=== PATIENT | female | born 1970 | race African-American/Black ===

== ENCOUNTER 2019-12-16 11:20 | Outpatient (CLI) | payer MEDICARE, MEDICAID, SELFPAY ==
--- NOTE | ~2019-12-16 | XR_ITS ---
EXAMINATION: XR elbow LT 2V EXAM DATE: 12/16/2019 11:44 INDICATION: No known recent injury provided at this time. Pain of the left elbow. TECHNIQUE: Left elbow frontal and lateral projections. There is no prior study for comparison. FINDINGS: There are no acute left elbow fractures or dislocations identified. There is no subcutaneo us gas. The soft tissue is unremarkable. There are no radiopaque foreign bodies. No evidence of j oint effusion. IMPRESSION: 1. Unremarkable XR elbow LT 2V exam. 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
--- NOTE | ~2019-12-16 | XR_ITS ---
EXAMINATION: XR elbow RT 2V EXAM DATE: 12/16/2019 11:44 INDICATION: No known recent injury provided at this time. Pain of the right elbow. TECHNIQUE: Right elbow frontal and lateral projections. Correlation is made to contralateral elbow s ramos date. FINDINGS: There are no acute right elbow fractures or dislocations identified. There is no subcutane ous gas. The soft tissue is unremarkable. There are no radiopaque foreign bodies. No evidence of joint effusion. Joint space is maintained, no bony productive changes. IMPRESSION: 1. Unremarkable XR elbow RT 2V exam. Reviewed, dictated and finalized at location B. 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
== END 2019-12-16 11:21 | disposition home or self-care (01) ==
LOC: ANHIMG 11:26
PROVIDERS: PCP Physician Assistant; Visit Provider Physician Assistant
DX: M25.521 Pain in right elbow (principal); M25.522 Pain in left elbow
CPT/HCPCS: 73070

== ENCOUNTER 2020-04-26 09:49 | Outpatient (CLI) | payer MEDICARE, MEDICAID, SELFPAY ==
--- NOTE | ~2020-04-26 | NM_ITS ---
EXAMINATION: NM hepatobiliary wo pharm DATE: 04/26/2020 14:37 CDT INDICATION: Gallstones. Abdomen pain. COMPARISON: None. TECHNIQUE: 4.8 mCi Tc-99m mebrofenin (Choletec) was administered intravenously. Scintigraphic images of the abdomen were obtained for one hour. At the 1 hour time point, the patient drank 8 oz Ensure, and imaging was continued for 60 minutes. Gallbladder ejection fraction was calculated by the technol ogist. FINDINGS: There is normal clearance of radiotracer from the blood pool. There is homogeneous tracer u ptake by the liver. Activity progresses to the bowel and gallbladder. The gallbladder ejection fract ion is 64%. Note that with this technique, normal GBEF >= 33%. IMPRESSION: 1. Normal hepatobiliary scan. Reviewed, dictated and finalized at location A.
== END 2020-04-26 09:50 | disposition home or self-care (01) ==
PROVIDERS: PCP Physician Assistant; Visit Provider Physician Assistant
DX: K80.20 Calculus of gallbladder without cholecystitis without obstruction (principal)
CPT/HCPCS: 78226; A9537

== ENCOUNTER 2021-10-27 07:37 | Outpatient (RCR) | payer OTHER, MEDICARE, SELFPAY ==
[2021-10-27] MEDS: diphenhydrAMINE HCl CAP 25 MG CAPSULE PO (09:47)
[2021-10-27] MEDS: ACETAMINOPHEN 325 MG TABLET 650 MG PO (09:47)
[2021-10-27] MEDS: FAMOTIDINE 20 MG TABLET PO (09:47)
[2021-10-27 09:54] VITALS: BP 117/75; PULSE 87; RESP 20; TEMP 35.6; O2SAT 99
[2021-10-27 11:30] VITALS: BP 129/76
--- NOTE | 2021-10-28 08:46 | PC.NURSE ---
Tried calling Ms Navarro and got a FULL voicemail and was unable to leave a message.
== END 2021-10-27 17:00 ==
LOC: AMCINF 07:37
PROVIDERS: PCP Physician Assistant; Visit Provider Internal Medicine Hematology & Oncology
DX: U07.1 COVID-19 (principal)
CPT/HCPCS: A9270; M0245; Q0245

== ENCOUNTER 2025-02-02 14:40 | Outpatient (CLI) | payer MEDICARE, MEDICAID, SELFPAY ==
--- NOTE | 2025-02-02 15:09 | ECG_ITS ---
Test Date: 2025-02-02 15:32:03 Measurements Intervals [place] Rate: 59 P: 65 [place]: 171 QRS: 46 QRSD: 107 T: 30 QT: 426 QTc: 425 Interpretive Statements SINUS BRADYCARDIA MODERATE ST DEPRESSION [0.05+ mV ST DEPRESSION] No previous ECG available for comparison Electronically Signed On 02-03-2025 16:41:10 CDT by Mary Rogers M.D.
[2025-02-02 15:27] LABS: Add Urine Microscopic? NO; Appearance Urine Clear (Clear); Bilirubin Urine Negative (Negative); Blood Urine Negative (Negative); Color Urine Yellow (Yellow); Glucose Urine UA Negative (Negative); Ketones Urine Negative (Negative); Leukocyte Esterase Ur Negative LEU/UL (Negative); Nitrate Urine Negative (Negative); Protein Urine Negative (Negative); Specific Grav Ur 1.017 (1.001-1.035); Urobilinogen Urine 0.2 mg/dL (<2.0); pH Urine 5.5 (5.0-9.0)
[2025-02-02 15:52] LABS: Basophils Percent Auto 0.5 % (0.2-1.2); Eosinophils Absolute Auto 0.1 K/mm3 (0-0.3); Eosinophils Percent Auto 2.4 % (0-4.4); Hematocrit 35.2 % (37.0-47.0); Immature Granulocyte Absolute 0.01 K/mm3 (0.00-0.031); Immature Granulocyte Percent A 0.2 % (0-0.5); Lymphocytes Absolute Auto 2.18 K/mm3 (0.9-3.2); Lymphocytes Percent Auto 36.8 % (18.3-44.2); Mean Corpuscular HGB Conc 31.3 g/dl (32-36); Mean Corpuscular Hemoglobin 28.1 pg (26-34); Mean Platelet Volume 10.8 fl (7.4-10.4); Monocytes Absolute Auto 0.8 K/mm3 (0.1-0.6); Neutrophils Absolute Auto 2.7 K/mm3 (1.3-6.7); Neutrophils Percent Auto 46.1 % (45.5-73.1); Platelet Count Result 226 k/mm3 (150-375); Red Blood Count 3.91 M/mm3 (4.2-5.4); Red Cell Distribution Width 12.9 % (11.5-14.5); White Blood Count 5.9 K/mm3 (4.5-10.0)
[2025-02-02 16:10] LABS: Anion Gap 5 mmol/L (4-12); Blood Urea Nitrogen 29 mg/dL (7-17); Calcium 8.9 mg/dL (8.4-10.2); Carbon Dioxide 32 mmol/L (22-30); Chloride 102 mmol/L (98-107); Estimated Glomerular Filt Rate 36; Glucose 63 mg/dL (65-110); Potassium 3.8 mmol/L (3.4-5.0); Sodium 139 mmol/L (137-145)
--- OUTSIDE RECORDS SUMMARY | 2025-02-02 17:18 | XMS_ITS | Referral Summary ---
Author Organization [facility] Address [address] [place] [address] Phone Care Team Providers Care Front Facer Name Role Phone Brayan Ferreira MD Unavailable [phone] Rosaura Bernard MD Unavailable [phone] Robbie Kimble MD Unavailable [phone] Jac Lancaster Primary Care Provider Dante Lynn MD Unavailable [phone] Encounters Date Type Department Care Team Description 11/07/2024 10:30 AM BREAKER OPERATOR Lab [facility] [address] [place] [address] from Last 3 Months Allergies Active Allergy Reactions Criticality Noted Date Comments Lisinopril Swelling High 11/24/2019 Lip & facial swelling Medications albuterol HFA (PROVENTIL HFA,VENTOLIN HFA,PROAIR HFA) 90 mcg/actuation inhaler Inhale 2 puffs every 6 (six) hours as needed for wheezing Active oxyCODONE-aceta minophen (PERCOCET) 10-325 mg per tablet Take 1 tablet by mouth every 4 (four) hours as needed for pain Active gabapentin (NEURONTIN) 800 mg tabletIndicatio ns:Neuropathic Pain Take 1 tablet (800 mg total) by mouth 3 (three) times a day as needed (nerve pain in feet) 1 Active cyclobenzaprine (FLEXERIL) 10 mg tabletIndicatio ns:Muscle Spasm Take 1 tablet (10 mg total) by mouth nightly as needed for muscle spasms 1 Active omeprazole (PriLOSEC) 40 mg capsule Take 1 capsule (40 mg total) by mouth daily as needed (heartburn/stoma ch pain) Active fluticasone furoate-vilante roL (BREO ELLIPTA) 200-25 mcg/dose diskus inhaler Inhale 1 puff daily as needed (cough/shortness of breath) Rinse mouth with water after use. Do not swallow. Active albuterol 2.5 mg /3 mL (0.083 %) nebulizer solution Take 3 mL (2.5 mg total) by nebulization every 6 (six) hours as needed for wheezing or shortness of breath Active cholecalciferol 25 mcg (1,000 unit) tablet Take 1 tablet (1,000 Units total) by mouth every morning Active diclofenac DR (VOLTAREN) 75 mg EC tablet Take 1 tablet (75 mg total) by mouth 2 (two) times a day as needed (knee pain/inflammatio n) Active DULoxetine DR (CYMBALTA) 60 mg capsule Take 1 capsule (60 mg total) by mouth daily as needed (nerve pain) Active acetaminophen (TYLENOL) 325 mg tabletIndicatio ns:Fever,Pain Take 2 tablets (650 mg total) by mouth every 4 (four) hours as needed for pain, headaches or fever 30 tablet 4 Active naloxone (NARCAN) 4 mg/actuation spray,non-aeros ol Administer 1 spray into affected nostril(s) as needed for opioid reversal Call 911. Administer a single spray in one nostril. Repeat every 3 minutes as needed if no or minimal response. 1 each 1 4 Active hydroCHLOROthia zide (HYDRODIURIL) 25 mg tablet Take 1 tablet (25 mg total) by mouth daily 4 Active rizatriptan (MAXALT) 10 mg tablet Take 1 tablet (10 mg total) by mouth once as needed for migraine TAKE 1 TABLET BY MOUTH AT ONSET OF HEADACHE. MAY REPEAT IN TWO HOURS IF NO BETTER. NO MORE THAN 2 TABLETS IN 24 HOUR 4 Active amLODIPine (NORVASC) 10 mg tablet Take 1 tablet (10 mg total) by mouth daily 30 tablet 4 06/30/20 25 Active hydrALAZINE (APRESOLINE) 50 mg tabletIndicatio ns:hypertension Take 1 tablet (50 mg total) by mouth 3 (three) times a day as needed (blood pressure >170) 30 tablet 4 Active Active Problems Problem Noted Date Diagnosed Date Community acquired pneumonia 02/03/2024 Pneumonia of left lower lobe due to infectious o rganism 02/02/2024 Elevated liver enzymes 02/02/2024 Leukocytosis 02/02/2024 Anemia 02/02/2024 Chronic bronchitis 02/02/2024 Anxiety 02/02/2024 Peripheral neuropathy 02/02/2024 Urinary retention 02/02/2024 Hypertensive urgency 07/31/2023 History of colon cancer 07/31/2023 BMI 40.0-44.9, adult 07/31/2023 Lightheadedness 07/31/2023 Osteoarthritis of glenohumeral joint, left 04/10 Glenohumeral arthritis, left 03/19/2023 Avascular necrosis 03/19/2023 Chronic pain of multiple joints 07/15/2021 Overview (07/22/2021): xrays hands: old non-union ulnar styloid fx. Feet: minimal-mild osteoarthropathy about the left foot; minimal-mild osteoarthropathy about the right foot. Bilateral plantar calcaneal enthesophytes. Hips: Minimal-mild osteoarthropathy of the bilateral hip joints. SI jts: Minimal osteoarthropathy at the bilateral sacroiliac joints. Lspine: Spondylosis and degenerative disc disease about the visualized lumbar spine Assessment & Plan (07/29/2021 12:34 PM CDT): Long-standing pain in multiple joints with evidence for degenerative arthritis in knees, c/t/l spine, and R shoulder. However she also has some inflammatory- sounding symptoms including nighttime awakening, AM stiffness >30 min, low back pain radiating to buttocks, possible synovitis to wrists and ankles, dry thickened skin on elbows (psoriasis?), hx plantar fasciitis treatment. She has a +FH of RA and psoriasis also. Described history of rash on face in the sun. Her serologies for RA, SLE were negative. crp was mildly elevated which is nonspecific. We reviewed our xray findings as below: xrays hands: old non-union ulnar styloid fx. Feet: minimal-mild osteoarthropathy about the left foot; minimal-mild osteoarthropathy about the right foot. Bilateral plantar calcaneal enthesophytes. Hips: Minimal-mild osteoarthropathy of the bilateral hip joints. SI jts: Minimal osteoarthropathy at the bilateral sacroiliac joints. Lspine: Spondylosis and degenerative disc disease about the visualized lumbar spine Discussed that while she has findings of degenerative arthritis, we cannot rule out an underlying inflammatory condition also. At this time there is not enough evidence to diagnose anything, though we could do an ultrasound of hands to look for synovitis, or MRI of SI jts to look for sacroiliitis. After discussion with both myself and Dr. Lynn, at this time pt prefers to forego any additional workup. Advised she may certainly come back if needed. Seen with Dr. Lynn. Seen with Dr. Lynn. F/u 2 weeks Assessment & Plan (07/15/2021 5:23 PM CDT): Long-standing pain in multiple joints with evidence for degenerative arthritis in knees, c/t/l spine, and R shoulder. However she also has some inflammatory- sounding symptoms including nighttime awakening, AM stiffness >30 min, low back pain radiating to buttocks, possible synovitis to wrists and ankles, dry thickened skin on elbows (psoriasis?), hx plantar fasciitis treatment. She has a +FH of RA and psoriasis also. Described history of rash on face in the sun. Will check autoimmune serologies. Discussed xrays of hands, feet, SI jts. Discussed u/s of R hand though pt prefers to wait on this till at least next visit. Seen with Dr. Lynn. 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 She has been through PT, pain mgmt, various nsaids/pain meds/muscle relaxants in the past. She does have AM stiffness which could be seen with inflammatory arthritis and we discussed seeking additional imaging of the SI jts such as an MRI. However, at this time she declines any additional imaging and prefers to continue with what she is doing with meds and water exercise. Advised that she may come back if she gets worse or would like to pursue more investigation. 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 11/07/2016 Class 3 severe obesity due t o excess calories without serious comorbidity with body mass index (BMI) of 50.0 to 59.9 in adult 11/07/2016 Immunizations Immunization Administration Dates Next Due DTaP 09/08/2018 Social History Tobacco Use Types Packs/Day Years Used Date Smoking Tobacco: Never Smokeless Tobacco: Never Tobacco Cessation:Counseling Given: Not Answered Alcohol Use Standard Drinks/Week Comments No 0 (1 standard drink = 0.6 oz pur e alcohol) [facility] Utilities Answer Date Recorded In the past 12 months has [employer], gas, oil, or water [employer] threatened to shut off services in your home? Patient unable to answer 02/04/2024 Social Connection and Isolation Panel [NHANES] A nswer Date Recorded In a typical week, how many times do you talk on the phone with family, friends, or neighbors? Patient unable to answer 02/04/2024 How often do you get togethe r with friends or relatives? Patient unable to answer 02/04/2024 How often do you attend chur ch or moravian services? Patient unable to answer 02/04/2024 Do you belong to any clubs o r organizations such as bahai groups, unions, fraternal or athletic groups, or school groups? Patient unable to answer 02/04/2024 How often do you attend meet ings of the clubs or organizations you belong to? Patient unable to answer 02/04/2024 Are you , , di vorced, , never , or living with a partner? Patient unable to answer 02/04/2024 AUDIT-C Answer Date Recorded Q1: How often do you have a drink containing alc ohol? Monthly or less 04/10/2023 Q2: How many drinks containi ng alcohol do you have on a typical day when you are drinking? 1 or 2 04/10/2023 Q3: How often do you have si x or more drinks on one occasion? Never 04/10/2023 Overall Financial Resource Strain (CARDIA) Answe r Date Recorded How hard is it for you to pa y for the very basics like food, housing, medical care, and heating? Patient unable to answer 02/04/2024 Hunger Vital Sign Answer Date Recorded Within the past 12 months, y ou worried that your food would run out before you got the money to buy more. Patient unable to answer 02/04/2024 Within the past 12 months, t he food you bought just didn't last and you didn't have money to get more. Patient unable to answer 02/04/2024 PRAPARE - Transportation Answer Date Re corded In the past 12 months, has l ack of transportation kept you from medical appointments or from getting medications? Patient unable to answer 02/04/2024 In the past 12 months, has l ack of transportation kept you from meetings, work, or from getting things needed for daily living? Patient unable to answer 02/04/2024 Housing Stability Vital Sign Answer Tate e Recorded In the last 12 months, was t here a time when you were not able to pay the mortgage or rent on time? Patient unable to answer 02/04/2024 In the last 12 months, how m any places have you lived? 1 02/04/2024 In the last 12 months, was t here a time when you did not have a steady place to sleep or slept in a chcf (including now)? Patient unable to answer 02/04/2024 Personal Safety Answer Date Recorded Have you ever been in or are you currently in a harmful physical or emotional relationship or is someone making you feel afraid or unsafe? Denies 07/05/2024 Comments No Sex and Gender Information Value Date Recorded Sex Assigned at Not on file Legal Sex Female 5:28 AM BREAKER OPERATOR Gender Identity Not on file Sexual Orientation Not on file Last Filed Vital Signs Vital Sign Reading Time Taken Comments Blood Pressure 126/78 07/06/2024 12:55 AM CDT Pulse 83 07/06/2024 12:55 AM CDT Temperature 36.8 C (98.2 F) 07/05/2024 8:35 PM CDT Respiratory Rate 16 07/06/2024 12:55 AM CDT Oxygen Saturation 100% 07/06/2024 12:55 AM CDT Inhaled Oxygen Concentration - - Weight 127 kg (279 lb 15.8 oz) 07/05/2024 8:35 P M CDT Height 175 cm (5' 8.9 ) 07/05/2024 8:35 PM CDT Body Mass Index 41.47 07/05/2024 8:35 PM CDT Plan of Treatment Not on file Medical Devices Implanted Type Area Operations Advisor Device Identifier Shelf Expiration Date Model / Serial / Lot [employer] Perform 40mm Peg Shoulder Small Component [employer] Poly [id number] - [id number] - [id number] Implanted:Qty: 1 on 04/10/2023 by Bk Armstrong MD at [facility] Left: Shoulder [employer] 11/15/2027 [id number] / [id number] / [employer] Simplex P Radiopaque Full Dose Cement Bone Sterile 6191-1-010 - [id number] Implanted:Qty: 1 on 04/10/2023 by Bk Armstrong MD at [facility] Left: Shoulder [employer] 6191-1-01 0 / / [employer] Si TV Head Perform Cocr Modular Humeral Shoulder [id number] - [id number] - [id number] Implanted:Qty: 1 on 04/10/2023 by Bk Armstrong MD at [facility] Left: Shoulder [employer] 07/26/2027 [id number] / [id number] / [employer] Billing Typist Perform Low Offset Modular Humeral Head Ti [id number] - [id number] - [id number] Implanted:Qty: 1 on 04/10/2023 by Bk Armstrong MD at [facility] Left: Shoulder [employer] 07/13/2027 [id number] / [id number] / [employer] Stem Perform Sz 1 Humeral Dwx1ss - [id number] - [id number] Implanted:Qty: 1 on 04/10/2023 by Bk Armstrong MD at [facility] Left: Shoulder [employer] 08/31/2027 [id number] / [id number] / [employer] Simplex P Radiopaque Full Dose Cement Bone Sterile 6191-1-010 - [id number] Implanted:Qty: 1 on 04/10/2023 by Bk Armstrong MD at [facility] Left: Shoulder [employer] [id number] 08/18/2025 6191-1-01 0 / / [id number] Procedures Procedure Name Priority Date/Time Associated Diagnosis Comments EGFR Routine 11/07/2024 10:40 AM BREAKER OPERATOR DIFFERENTIAL AUTO Routine 11/07/2024 10: 40 AM BREAKER OPERATOR TSH Routine 11/07/2024 10:40 AM BREAKER OPERATOR URIC ACID Routine 11/07/2024 10:40 AM BREAKER OPERATOR HEMOGLOBIN A1C Routine 11/07/2024 10:40 AM BREAKER OPERATOR FERRITIN Routine 11/07/2024 10:40 AM BREAKER OPERATOR CBC WITH AUTO DIFFERENTIAL Routine 11/07/2024 10:40 AM BREAKER OPERATOR COMPREHENSIVE METABOLIC PANEL Routine 11/07/2024 10:40 AM BREAKER OPERATOR SCREENING MAMMOGRAM BILATERAL W ABHAY Schedule Routine, Read Routine (OP Routine) 05/14/2023 9:17 AM CDT Screening mammogram, encounter for from Last 3 Months or Most Recently Relevant to Health Maintenance Results * (ABNORMAL) eGFR (11/07/2024 10:40 AM BREAKER OPERATOR) eGFR 55(L) >=60 mL/min/1. 73 m2 Comment: Interpretive Data Reference Interval Normal >/= 90 mL/min/1.73m2 Mildly decreased* 60 - 89 mL/min/1.73m2 Mildly to moderately decreased 45 - 59 mL/min/1.73m2 Moderately to severely decreased 30 - 44 mL/min/1.73m2 Severely decreased 15 - 29 mL/min/1.73m2 Kidney Failure < 15 mL/min/1.73m2 *Relative to young adult level Estimated glomerular filtration rate is determined by the 2020 CKD-EPI equation recommended by the National Kidney Foundation (A Unifying Approach to GFR Estimation: Recommendations of the NKF-ASK Task Force on Reassessing the Inclusion of Race in Diagnosing Kidney Disease, JASN 2020). The CKD-EPI equation should not be used for patients with unstable renal function and has not been validated in children and those over 70. Current interpretive data was last reviewed 2021. Blood 11/07/2024 10:4 0 AM BREAKER OPERATOR 11/07/2024 10:58 AM BREAKER OPERATOR Ronda Addison PRODUCTION LINE OPERATOR LAB BLOOD ORDERABLES Final Re sult [facility] [address] [facility] Department [place] [address] * Differential, auto (11/07/2024 10:40 AM BREAKER OPERATOR) Pathologist [facility] Neutrophil abs 2.0 1.5 - 6.5 K/cumm Imm gran abs 0.0 0.0 - 0.1 K/cumm [facility] Lymphocyte abs 2.6 0.8 - 3.3 K/cumm [facility] Monocyte abs 0.7 0.2 - 0.8 K/cumm [facility] Eosinophil abs 0.1 0.0 - 0.5 K/cumm [facility] Basophil abs 0.0 0.0 - 0.1 K/cumm [facility] Neutrophil pct 37.4 % [facility] Comment: Interpretive Data Percent cell count reference ranges are not reported, since discordance with absolute values may lead to misinterpretation of CBC data. Current Interpretive Data was last revised on 2018. Imm gran pct 0.2 % [facility] Comment: Interpretive Data Percent cell count reference ranges are not reported, since discordance with absolute values may lead to misinterpretation of CBC data. Current Interpretive Data was last revised on 2018. Lymphocyte pct 47.2 % [facility] Comment: Interpretive Data Percent cell count reference ranges are not reported, since discordance with absolute values may lead to misinterpretation of CBC data. Current Interpretive Data was last revised on 2018. Monocyte pct 12.6 % [facility] Comment: Interpretive Data Percent cell count reference ranges are not reported, since discordance with absolute values may lead to misinterpretation of CBC data. Current Interpretive Data was last revised on 2018. Eosinophil pct 2.0 % [facility] Comment: Interpretive Data Percent cell count reference ranges are not reported, since discordance with absolute values may lead to misinterpretation of CBC data. Current Interpretive Data was last revised on 2018. Basophil pct 0.6 % [facility] Comment: Interpretive Data Percent cell count reference ranges are not reported, since discordance with absolute values may lead to misinterpretation of CBC data. Current Interpretive Data was last revised on 2018. Blood 11/07/2024 10:4 0 AM BREAKER OPERATOR 11/07/2024 10:58 AM BREAKER OPERATOR Ronda Addison PRODUCTION LINE OPERATOR LAB BLOOD ORDERABLES Final Re sult [facility] [address] [facility] Department [place] [address] * (ABNORMAL) CBC with auto differential (11/07/2024 10:40 AM BREAKER OPERATOR) WBC 5.4 3.8 - 9.9 K/cumm Hgb 11.8(L) 11.9 - 15.5 g/dL [facility] Hct 38.3 35.6 - 45.5 % [facility] Plt 252 150 - 400 K/cumm [facility] MPV 10.2 9.1 - 12.3 fL [facility] RBC 4.20 3.90 - 5.20 M/cumm [facility] MCV 91.2 81.3 - 96.4 fL [facility] MCH 28.1 27.1 - 33.3 pg [facility] MCHC 30.8(L) 32.3 - 35.7 g/dL [facility] RDW CV 13.5 11.1 - 14.9 % [facility] RDW SD 45.2 35.7 - 48.1 fL [facility] NRBC abs 0.00 0.00 - 0.01 K/cumm [facility] Blood 11/07/2024 10:4 0 AM BREAKER OPERATOR 11/07/2024 10:58 AM BREAKER OPERATOR Ronda Addison PRODUCTION LINE OPERATOR LAB BLOOD ORDERABLES Final Re sult [facility] [address] [place] [address] * Uric acid (11/07/2024 10:40 AM BREAKER OPERATOR) Pathologist [facility] Uric acid 5.1 2.5 - 7.0 mg/dL Blood 11/07/2024 10:4 0 AM BREAKER OPERATOR 11/07/2024 10:58 AM BREAKER OPERATOR Ronda Addison PRODUCTION LINE OPERATOR LAB BLOOD ORDERABLES Final Re sult Performing Organization Address [facility] Co de Phone Number MICHELLE[address] [place] [address] * TSH (11/07/2024 10:40 AM BREAKER OPERATOR) Pathologist [facility] Thyroid Stimulating Hormone 1.43 0.30 - 4.20 mcIUnit/mL Blood 11/07/2024 10:4 0 AM BREAKER OPERATOR 11/07/2024 10:58 AM BREAKER OPERATOR Ronda Addison PRODUCTION LINE OPERATOR LAB BLOOD ORDERABLES Final Re sult Performing Organization Address [facility] Co de Phone Number MICHELLE[address] [place] [address] * Hemoglobin A1c (11/07/2024 10:40 AM BREAKER OPERATOR) Hgb A1C 5.4 4.0 - 5.6 % Estimated Average Glucose 108 mg/dL [facility] Comment: The ADA recommends reporting an estimated Average Glucose (eAG) with all Hemoglobin A1c results using the equation derived from a study of 507 normal and diabetic adults. Minority populations were underrepresented and children were not included. (Diabetes Care 31:5099-8770, 2008). The eAG is not equivalent to a fasting glucose. Blood 11/07/2024 10:4 0 AM BREAKER OPERATOR 11/07/2024 10:58 AM BREAKER OPERATOR Ronda Addison PRODUCTION LINE OPERATOR LAB BLOOD ORDERABLES Final Re sult Performing Organization Address [facility] Co de Phone Number [address] [place] [address] * Ferritin (11/07/2024 10:40 AM BREAKER OPERATOR) Pathologist [facility] Ferritin 27 15 - 150 ng/mL Blood 11/07/2024 10:4 0 AM BREAKER OPERATOR 11/07/2024 10:58 AM BREAKER OPERATOR Ronda Addison PRODUCTION LINE OPERATOR LAB BLOOD ORDERABLES Final Re sult Performing Organization Address [facility] de Phone Number [address] [place] [address] * (ABNORMAL) Comprehensive metabolic panel (11/07/2024 10:40 AM BREAKER OPERATOR) Pathologist [facility] Sodium 142 135 - 145 mmol/L Potassium, pl 4.4 3.3 - 4.9 mmol/L [facility] Chloride 108 97 - 110 mmol/L [facility] CO2 27 22 - 32 mmol/L [facility] Anion gap 7 2 - 15 mmol/L [facility] BUN 18 6 - 25 mg/dL [facility] Creatinine 1.17(H) 0.60 - 1.10 mg/dL [facility] Glucose 76 70 - 199 mg/dL [facility] Comment: Interpretive Data Fasting glucose >/= 126 mg/dl is diagnostic for diabetes. Fasting is defined as no caloric intake for at least 8 hours. Fasting glucose between 100 mg/dl to 125 mg/dl is diagnostic of prediabetes. In a patient with classic symptoms of hyperglycemia or hyperglycemic crisis, a random glucose >/= 200 mg/dl is diagnostic for diabetes. In the absence of unequivocal hyperglycemia, results should be confirmed by repeat testing. The classification and Diagnosis of Diabetes Diabetes Care 2021; 46: S19-S40. Current interpretive data was last revised 2022. Calcium 9.7 8.5 - 10.3 mg/dL [facility] Bilirubin, total 0.5 0.1 - 1.2 mg/dL [facility] Protein, pl 6.8 6.5 - 8.5 g/dL [facility] Albumin 3.8 3.5 - 5.0 g/dL [facility] Alk phos 100 40 - 130 Units/L CERNER ALT 20 7 - 45 Units/L [facility] AST 21 10 - 45 Units/L [facility] Blood 11/07/2024 10:4 0 AM BREAKER OPERATOR 11/07/2024 10:58 AM BREAKER OPERATOR Ronda Addison PRODUCTION LINE OPERATOR LAB BLOOD ORDERABLES Final Re sult [facility] [address] [facility] Department [place] [address] * Screening Mammogram Bilateral W Abhay (05/14/2023 9:17 AM CDT) Anatomical Region Laterality Modality Breast Bilateral Mammography Impressions 05/14/2023 9:23 AM CDT BI-RADS ATLAS category (overall): 1 - Negative There is no mammographic evidence of malignancy. A 1 year screening mammogram is recommended. The patient has been or will be contacted. We recommend annual screening mammography for women at average risk of breast cancer beginning at age 40, based on guidelines of the [employer] (ACR Practice Parameter for the Performance of Screening and Diagnostic Mammography) and [employer]. For women with and elevated risk of breast cancer, please refer to the ACR Practice Parameter for specific screening recommendations. The patient will be entered into a reminder system with a target due date of 1 year for her next screening exam. Narrative 05/14/2023 9:23 AM CDT Screening Mammogram Bilateral W Abhay: 05/14/23 The study was acquired using full field digital technology and interpreted from soft copy. 2D digital mammographic views, as well as 3D digital tomosynthesis were performed in the CC and MLO projections. CLINICAL: Screening mammogram, encounter for. Medical history includes chemotherapy. History of breast cancer in Mother's Sister, Father's Sister. COMPARISONS: 01/14/2013 Screening Mammogram 2D Bilateral BREAST TISSUE: The breasts are almost entirely fatty. FINDINGS: There is no new suspicious finding in either breast on mammogram. Jac CALLE IMG MAMMO PROCEDURES Fi nal Result from Last 3 Months or Most Recently Relevant to Health Maintenance Insurance MEDICARE [facility] MEDICARE [facility] MEDICARE [facility] MEDICARE MEDICARE [facility] [facility] Advance Directives For more information, please contact: [phone] Documents on File Type Date Recorded Patient Demolition Expert Expl anation ADVANCE DIRECTIVE 04/16/2018 12:00 AM CLARICE Hopson OF PRICING CONSULTANT FINANCIAL/MEDICAL * Full Code (Latest Code Status on File) Date Activated Date Inactivated Comments 02/02/2024 3:53 PM 02/04/2024 4:00 PM * Full Code Date Activated Date Inactivated Comments 02/02/2024 2:19 PM 02/02/2024 3:53 PM * Full Code Date Activated Date Inactivated Comments 07/31/2023 7:24 PM 08/02/2023 6:23 PM * Full Code Date Activated Date Inactivated Comments 04/10/2023 3:07 PM 04/11/2023 4:39 PM Care Teams Front Facer Relationship Specialty Start Date End Date Jac Lancaster PA [address] [facility] [[email or web address] [address] [place], [place] [id number] PCP - General Physician Farm Operations Manager 02/07/21 Brayan Ferreira MD Medical Oncologist/Airframe Technical Officer Hematology and Oncology 06/25/18 Rosaura Bernard MD [address] [place] [address] Referring Physician Surgery 08/25/19 Robbie Kimble MD [address] [place] [address] Consulting Physician Gastroenterology 07/08/20 Dante Lynn MD [address] [place] [address] Consulting Physician Rheumatology 06/24/21
--- OUTSIDE RECORDS SUMMARY | 2025-02-02 17:18 | XMS_ITS ---
Author Organization [facility] Address [address] [place] [address] Phone Care Team Providers Care Documentation Lead Name Role Phone Brayan Ferreira MD Unavailable Rosaura Bernard MD Unavailable [phone] Robbie Kimble MD Unavailable [phone] Jac Lancaster Primary Care Provider Dante Lynn MD Unavailable [phone] Active Problems Problem Noted Date Diagnosed Date [...] of 50.0 to 59.9 in adult 11/07/2016 Current Treatment and Therapy Plans No current plan information found. Past Treatment and Therapy Plans No past plan information found. Lifetime Dose Tracking * Chemical Lifetime Dose Automatic Entry Manual Entr y Fluoro Time 4.433 minutes 4.433 minutes 0 minutes Air kerma at the reference point (Ka,r) 13.63 mGy 1 3.63 mGy 0 mGy DLP 340 mGycm 340 mGycm 0 mGycm
--- OUTSIDE RECORDS SUMMARY | 2025-02-02 17:19 | XMS_ITS | Encounter Summary ---
Author Organization [facility] Address [address] [place] [address] Phone Care Team Providers Care Sow Farm Technician Name Role Phone Brayan Ferreira MD Unavailable [phone] Rosaura Bernard MD Unavailable [phone] Robbie Kimble MD Unavailable [phone] Jac Lancaster Primary Care Provider Dante yLnn MD Unavailable Encounter Details Date Type Department Care Team (Late st Contact Info) Description 08/02/2023 Orders Only [facility] Orthopaedic Surgery [address] [place] [address] Bk Armstrong MD [address] [facility] [address]12A [place] [address] Social History Tobacco Use Types Packs/Day Years Used Date Smoking Tobacco: Never Smokeless Tobacco: Never Alcohol Use Standard Drinks/Week Comments No 0 (1 standard drink = 0.6 oz pur e alcohol) Social Connection and Isolat ion Panel [NHANES] Answer Date Recorded In a typical week, how many times do you talk on the phone with family, friends, or neighbors? More than three times a week 08/01/2023 How often do you get togethe r with friends or relatives? Twice a week 08/01/2023 How often do you attend chur ch or druze services? Never 08/01/2023 Do you belong to any clubs o r organizations such as pentecostalism groups, unions, fraternal or athletic groups, or school groups? No 08/01/2023 How often do you attend meet ings of the clubs or organizations you belong to? Never 08/01/2023 Are you , , di vorced, , never , or living with a partner? Never 08/01/2023 AUDIT-C Answer Date Recorded Q1: How often [...] like food, housing, medical care, and heating? Not hard at all 08/01/2023 Hunger Vital Sign Answer Date Recorded Within the past 12 months, y ou worried that your food would run out before you got the money to buy more. Never true 08/01/20 Within the past 12 months, t he food you bought just didn't last and you didn't have money to get more. Never true 08/01/2023 PRAPARE - Transportation Answer Date Re corded In the past 12 months, has l ack of transportation kept you from medical appointments or from getting medications? No 07/20 In the past 12 months, has l ack of transportation kept you from meetings, work, or from getting things needed for daily living? No 08/01/2023 Housing Stability Vital Sign Answer Tate e Recorded In the last 12 months, was t here a time when you were not able to pay the mortgage or rent on time? No 08/01/2023 In the last 12 months, how many places have you lived? 1 08/01/2023 In the last 12 months, was t here a time when you did not have a steady place to sleep or slept in a [place] [facility] (including now)? No 08/01/2023 Personal Safety Answer Date Recorded Have you ever been in or are you currently in a harmful physical or emotional relationship or is someone making you feel afraid or unsafe? 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 Gender Identity Not on file Sexual Orientation Not on file documented as of this encounter Plan of Treatment Not on file documented as of this encounter Visit Diagnoses Not on filedocumented in this encounter Additional Health Concerns Infection Onset Date Last Indicated Resolved Time COVID: Suspected 02/02/2024 02/02/2024 02/02/2024 10:15 AM CDT documented as of this encounter Care Teams Sow Farm Technician Relationship Specialty Start Date End Date Jac Lancaster PA [address] [place], [place] [phone] PCP - General Physician Event Host 02/07/21 Brayan Ferreira MD Medical Oncologist/Hand Hardener Hematology and Oncology 06/25/18 Rosaura Bernard MD [address] [place] [address] [id number] Referring Physician Surgery 08/25/19 Robbie Kimble MD [address] [place] [address] Consulting Physician Gastroenterology 07/08/20 Dante Lynn MD [facility] [place] [address] Consulting Physician Rheumatology 06/24/21 documented as of this encounter
--- OUTSIDE RECORDS SUMMARY | 2025-02-02 17:19 | XMS_ITS | Clinical Summary ---
Author Organization [facility] Address [address] [place] [address] Phone Care Team Providers Care Truant Officer Name Role Phone Brayan Ferreira MD Unavailable Rosaura Bernard MD Unavailable [phone] Robbie Kimble MD Unavailable [phone] Jac Lancaster Primary Care Provider Dante Lynn MD Unavailable Allergies Active Allergy Reactions Criticality Noted Date [...] of 50.0 to 59.9 in adult 11/07/2016 Encounters Date Type Department Care Team Description 11/07/2024 10:30 AM SKEINER Lab [facility] [address] [place] [id number] from Last 3 Months Immunizations Immunization Administration Dates Next Due DTaP 09/08/2018 Surgical History Surgery Date Site/Laterality Comments SD LAPS GASTRIC RESTRICTIVE PROCEDURE PLACE DEVICE Laparosc Restrictive Proc Adjustable Gastric Band Placement - (Added by TW Conv) FLUORO GUIDED INJECTION SHOULDER RIGHT 04/20/2021 Right FLUORO GUIDED INJECTION SHOULDER RIGHT 07/21/2021 Right FLUORO GUIDED INJECTION SHOULDER RIGHT 01/06/2022 Right FLUORO GUIDED INJECTION SHOULDER RIGHT 01/26/2022 Right FLUORO GUIDED INJECTION SHOULDER LEFT 04/12/2022 Left FLUORO GUIDED ASPIRATION SHOULDER LEFT 07/27/2022 Left COLONOSCOPY LAPAROSCOPIC GASTRIC BANDING GIO-EN-Y PROCEDURE 11/19/2012 - 11/18/2013 HYSTERECTOMY 30's partial--ovaries intact Medical History Medical History Date Comments Hypertension GERD (gastroesophageal reflux disease) Anterolisthesis of lumbar spine 10/03/2017 Grade 2 L4 on L5 DDD (degenerative disc disease), lumbar Lumbar facet arthropathy BMI 45.0-49.9, adult (HCC) Anxiety Cancer (HCC) 6years Colon Cancer Joint pain Low back pain Personal history of colon cancer last chemotherapy in 2017 History of chemotherapy 2017 Colon Ca ncer Family History Medical History Relation Name Comments Diabetes Brother 1 Ben Navarro Heart failure Brother 1 Ben Navarro Hypertension Brother 1 Ben Navarro Family history of hypertension - (Added by TW Conv) Coronary artery disease Brother 2 Fami ly history of coronary artery disease - (Added by TW Conv) Depression Brother 3 Family history of depression - (Added by TW Conv) Stroke Father Rajendra Navarro Family history of cerebrovascular accident (CVA) - (Added by TW Conv) Breast cancer Father's Sister Cancer Mother Jayna Navarro Family history of cancer - (Added by TW Conv) Colon cancer Mother Tia Navarro Breast cancer Mother's Sister Cancer Other Family history of cancer - Relation: Grandparent (Added by TW Conv) Arthritis Sister 1 Natasha Chronic Pain Sister 1 Natasha Chronic pain di sorder - (Added by TW Conv) Hypertension Sister 2 Family history of hypertension - (Added by TW Conv) Anesthesia problems Neg Hx Relation Name Status Comments Brother 1 Ben Navarro Brother 2 Brother 3 Father Rajendra Navarro Father's Sister Mother Jayna Navarro Mother's Sister Other Sister 1 Natasha Sister 2 Social History Tobacco Use Types Packs/Day Years Used Date Smoking Tobacco: Never Smokeless Tobacco: Never Tobacco Cessation:Counseling Given: Not Answered Alcohol Use Standard Drinks/Week Comments No 0 (1 standard drink = 0.6 oz pur e alcohol) [facility] Utilities Answer Date Recorded In the past 12 months has Need, gas, oil, or water [employer] threatened to shut off services in your [...] answer 02/04/2024 How often do you attend [facility] or roman catholic services? Patient unable to answer 02/04/2024 Do you belong to any clubs o r organizations such as religious groups, unions, fraternal or athletic groups, or [...] place to sleep or slept in a [facility] (including now)? Patient unable to answer 02/04/2024 Personal Safety Answer Date Recorded Have you ever been in or are you currently in a harmful physical or emotional relationship or is someone making you feel afraid or unsafe? Denies 07/05/2024 Comments No Sex and Gender Information Value Date Recorded Sex Assigned at Not on file Legal Sex Female 5:28 AM SKEINER Gender Identity Not on file Sexual Orientation Not on file Obstetrics History Para Term AB IAB SAB Ectopic Multiple Livin g Live Births 0 0 0 Last Filed Vital Signs Vital Sign Reading [...] 07/05/2024 8:35 PM CDT Plan of Treatment Health Maintenance Due Date Last Done Comments Colon Cancer Screening-Colonoscopy 1969 Depression Screening 1969 Hepatitis C Screening 1969 Hepatitis B Screening 1987 Regular Well Visit/Exam 18-64 1987 Zoster Vaccine (1 of 2) 2019 Breast Cancer Screening-Mammogram 05/14/2024 05/14/2023, 01/14/2013 Influenza Vaccine (#1) 2024 DTaP/Tdap/Td Vaccine (2 - Tdap) 09/08/2028 09/08/2018 Pneumococcal vaccine <65 Aged Out No longer eligible based on patient's age to complete this topic Medical Devices Implanted Type Area Supervisor Receiving And Processing Device Identifier Shelf Expiration Date Model / Serial / Lot [employer] Perform 40mm Peg Shoulder Small Component Glenoid All Poly [id number] - [id number] - [id number] Implanted:Qty: 1 on 04/10/2023 by kB Armstrong MD at [facility] Left: Shoulder [employer] 11/15/2027 [id number] / [id number] / [employer] Simplex P Radiopaque Full Dose Cement Bone Sterile 6191-1-010 - [id number] Implanted:Qty: 1 on 04/10/2023 by Bk Armstrong MD at [facility] Left: Shoulder [employer] 6191-1-01 0 / / [employer] Head Perform Cocr Modular Humeral Shoulder [id number] - [id number] - [id number] Implanted:Qty: 1 on 04/10/2023 by Bk Armstrong MD at [facility] Left: Shoulder [employer] 07/26/2027 [id number] / [id number] / [employer] Skip Hoist Operator Perform Low Offset Modular Humeral Head Ti [id number] - [id number] - [id number] Implanted:Qty: 1 on 04/10/2023 by Bk Armstrong MD at [facility] Left: Shoulder Gelesis 07/13/2027 [id number] / [id number] / [employer] Stem Perform Sz 1 Humeral [id number] - [id number] - [id number] Implanted:Qty: 1 on 04/10/2023 by Bk Armstrong MD at [facility] Left: Shoulder Gelesis 08/31/2027 [id number] / [id number] / [employer] Simplex P Radiopaque Full Dose Cement Bone Sterile 6191-1-010 - [id number] Implanted:Qty: 1 on 04/10/2023 by Bk Armstrong MD at [facility] Left: Shoulder [employer] [id number] 08/18/2025 6191-1-01 0 / / [id number] Procedures Procedure Name Priority Date/Time Associated Diagnosis Comments EGFR Routine 11/07/2024 10:40 AM SKEINER DIFFERENTIAL AUTO Routine 11/07/2024 10: 40 AM SKEINER TSH Routine 11/07/2024 10:40 AM SKEINER URIC ACID Routine 11/07/2024 10:40 AM SKEINER HEMOGLOBIN A1C Routine 11/07/2024 10:40 AM SKEINER FERRITIN Routine 11/07/2024 10:40 AM SKEINER CBC WITH AUTO DIFFERENTIAL Routine 11/07/2024 10:40 AM SKEINER COMPREHENSIVE METABOLIC PANEL Routine 11/07/2024 10:40 AM SKEINER SCREENING MAMMOGRAM BILATERAL W ABHAY Schedule Routine, Read Routine (OP Routine) 05/14/2023 9:17 AM CDT Screening mammogram, encounter for from Last 3 Months or Most Recently Relevant to Health Maintenance Results * (ABNORMAL) eGFR (11/07/2024 10:40 AM SKEINER) eGFR 55(L) >=60 mL/min/1. 73 m2 Comment: [...] reviewed 2021. Blood 11/07/2024 10:4 0 AM SKEINER 11/07/2024 10:58 AM SKEINER Ronda Addison WET WASH ASSEMBLER LAB BLOOD ORDERABLES Final Re sult [facility] [address] [facility] [place] [address] * Differential, auto (11/07/2024 10:40 AM SKEINER) Neutrophil abs 2.0 1.5 - 6.5 K/cumm Imm gran abs 0.0 0.0 - 0.1 K/cumm [facility] Lymphocyte abs 2.6 0.8 - 3.3 K/cumm [facility] Monocyte abs 0.7 0.2 - 0.8 K/cumm [facility] Eosinophil abs 0.1 0.0 - 0.5 K/cumm [facility] Basophil abs 0.0 0.0 - 0.1 K/cumm [facility] Neutrophil pct 37.4 % [facility] Comment: Interpretive Data Percent cell count reference ranges are not reported, since discordance with absolute values may lead to misinterpretation of CBC data. Current Interpretive Data was last revised on 2018. Imm gran pct 0.2 % [facility] Comment: Interpretive Data Percent cell count reference ranges are not reported, since discordance with absolute values may lead to misinterpretation of CBC data. Current Interpretive Data was last revised on 2018. Lymphocyte pct 47.2 % [facility] Comment: Interpretive Data Percent cell count reference ranges are not reported, since discordance with absolute values may lead to misinterpretation of CBC data. Current Interpretive Data was last revised on 2018. Monocyte pct 12.6 % [facility] Comment: Interpretive Data Percent cell count reference ranges are not reported, since discordance with absolute values may lead to misinterpretation of CBC data. Current Interpretive Data was last revised on 2018. Eosinophil pct 2.0 % [facility] Comment: Interpretive Data Percent cell count reference ranges are not reported, since discordance with absolute values may lead to misinterpretation of CBC data. Current Interpretive Data was last revised on 2018. Basophil pct 0.6 % [facility] Comment: Interpretive Data Percent cell count reference ranges are not reported, since discordance with absolute values may lead to misinterpretation of CBC data. Current Interpretive Data was last revised on 2018. Blood 11/07/2024 10:4 0 AM SKEINER 11/07/2024 10:58 AM SKEINER Ronda Addison WET WASH ASSEMBLER LAB BLOOD ORDERABLES Final Re sult [facility] [address] [facility] Department [place] [address] * (ABNORMAL) CBC with auto differential (11/07/2024 10:40 AM SKEINER) WBC 5.4 3.8 - 9.9 K/cumm Hgb 11.8(L) 11.9 - 15.5 g/dL [facility] Hct 38.3 35.6 - 45.5 % [facility] Plt 252 150 - 400 K/cumm [facility] MPV 10.2 9.1 - 12.3 fL [facility] RBC 4.20 3.90 - 5.20 M/cumm [facility] MCV 91.2 81.3 - 96.4 fL [facility] MCH 28.1 27.1 - 33.3 pg [facility] MCHC 30.8(L) 32.3 - 35.7 g/dL [facility] RDW CV 13.5 11.1 - 14.9 % [facility] RDW SD 45.2 35.7 - 48.1 fL [facility] NRBC abs 0.00 0.00 - 0.01 K/cumm [facility] Blood 11/07/2024 10:4 0 AM SKEINER 11/07/2024 10:58 AM SKEINER Ronda Addison WET WASH ASSEMBLER LAB BLOOD ORDERABLES Final Re sult Performing Organization Address [facility] de Phone Number [address] [place] [address] * Uric acid (11/07/2024 10:40 AM SKEINER) Uric acid 5.1 2.5 - 7.0 mg/dL Blood 11/07/2024 10:4 0 AM SKEINER 11/07/2024 10:58 AM SKEINER Ronda Addison WET WASH ASSEMBLER LAB BLOOD ORDERABLES Final Re sult Performing Organization Address [facility] Co de Phone Number [address] [place] [address] * TSH (11/07/2024 10:40 AM SKEINER) Thyroid Stimulating Hormone 1.43 0.30 - 4.20 mcIUnit/mL Blood 11/07/2024 10:4 0 AM SKEINER 11/07/2024 10:58 AM SKEINER Ronda Jacob Addison WET WASH ASSEMBLER LAB BLOOD ORDERABLES Final Re sult Performing Organization Address [facility] de Phone Number [facility] [address] [place] [address] * Hemoglobin A1c (11/07/2024 10:40 AM SKEINER) [facility] Hgb A1C 5.4 4.0 - 5.6 % Estimated Average Glucose 108 mg/dL [facility] Comment: The ADA recommends reporting an estimated Average Glucose (eAG) with all Hemoglobin A1c results using the equation derived from a study of 507 normal and diabetic adults. Minority populations were underrepresented and children were not included. (Diabetes Care 31:8505-7688, 2008). The eAG is not equivalent to a fasting glucose. Blood 11/07/2024 10:4 0 AM SKEINER 11/07/2024 10:58 AM SKEINER Ronda Addison WET WASH ASSEMBLER LAB BLOOD ORDERABLES Final Re sult Performing Organization Address [facility] Co de Phone Number [address] [place] [address] * Ferritin (11/07/2024 10:40 AM SKEINER) [facility] Ferritin 27 15 - 150 ng/mL Blood 11/07/2024 10:4 0 AM SKEINER 11/07/2024 10:58 AM SKEINER Ronda Jacob Addison WET WASH ASSEMBLER LAB BLOOD ORDERABLES Final Re sult Performing Organization Address [facility] Co de Phone Number [facility] [address] [place] [address] * (ABNORMAL) Comprehensive metabolic panel (11/07/2024 10:40 AM SKEINER) [facility] Sodium 142 135 - 145 mmol/L Potassium, pl 4.4 3.3 - 4.9 mmol/L [facility] Chloride 108 97 - 110 mmol/L [facility] CO2 27 22 - 32 mmol/L [facility] Anion gap 7 2 - 15 mmol/L [facility] BUN 18 6 - 25 mg/dL [facility] Creatinine 1.17(H) 0.60 - 1.10 mg/dL [facility] Glucose 76 70 - 199 mg/dL [facility] Comment: Interpretive Data Fasting glucose >/= 126 [...] classification and Diagnosis of Diabetes Diabetes Care 202; 46: S19-S40. Current interpretive data was last revised 2022. Calcium 9.7 8.5 - 10.3 mg/dL [facility] Bilirubin, total 0.5 0.1 - 1.2 mg/dL [facility] Protein, pl 6.8 6.5 - 8.5 g/dL [facility] Albumin 3.8 3.5 - 5.0 g/dL [facility] Alk phos 100 40 - 130 Units/L [facility] ALT 20 7 - 45 Units/L [facility] AST 21 10 - 45 Units/L [facility] Blood 11/07/2024 10:4 0 AM SKEINER 11/07/2024 10:58 AM SKEINER Ronda Addison WET WASH ASSEMBLER LAB BLOOD ORDERABLES Final Re sult Performing Organization Address City/State/[facility] Co de Phone Number [facility] [address] [facility] [place] [address] * Screening Mammogram Bilateral W Abhay (05/14/2023 [...] age 39, based on guidelines of the [employer] (ACR Practice Parameter for the Performance of Screening and Diagnostic Mammography) and [employer]. For women [...] Recently Relevant to Health Maintenance Insurance MEDICARE [facility] IDPA IDPA MEDICARE MEDICARE [facility] Advance Directives For more information, please contact: [phone] Documents on File Type Date Recorded Patient Shrimp Cleaner Expl anation ADVANCE DIRECTIVE 04/16/2018 12:00 AM CLARICE R OF ROLL OUT MANAGER FINANCIAL/MEDICAL * Full Code (Latest Code Status [...] 3:07 PM 04/11/2023 4:39 PM Care Teams Truant Officer Relationship Specialty Start Date End Date Jac Lancaster PA [address] [place] [address] [phone] PCP - General Physician Pharmacy Technology Instructor 02/07/21 Brayan Ferreira MD Medical Oncologist/Customer Sales Consultant Hematology and Oncology 06/25/18 Rosaura Bernard MD [address] [place] [address] [id number] Referring Physician Surgery 08/25/19 Robbie Kimble MD [address] [place] [address] [id number] Consulting Physician Gastroenterology 07/08/20 Dante Lynn MD [address] [place] [address] Consulting Physician Rheumatology 06/24/21
--- OUTSIDE RECORDS SUMMARY | 2025-02-02 17:19 | XMS_ITS | Clinical Summary ---
Author Organization [facility] Address Replaced by [facility] [place] [address] Care Team Providers Care Materials And Processes Manager Name Role Phone Ronda Addison FELICITAS Primary Care Provider [phone] Allergies Active Allergy Reactions Criticality Noted Date Comments Lisinopril Swelling 11/24/2019 Medications oxyCODONE-aceta minophen 10-325 MG tablet Take 1 tablet by mouth every 4 (four) hours as needed for Pain. Active diclofenac EC 50 MG tablet Take 50 mg by mouth 2 (two) times daily. Active esomeprazole 20 MG capsule Take 20 mg by mouth every morning before breakfast. Active cyclobenzaprine 7.5 MG Tab Active hydroCHLOROthia zide 25 MG tablet Take 25 mg by mouth every morning. Active albuterol sulfate HFA 108 (90 Base) MCG/ACT inhaler Inhale 2 puffs into the lungs every 4 (four) hours as needed for Shortness of breath or Wheezing. 2 Active ALPRAZolam 0.5 MG tablet Take 0.5 mg by mouth daily. 2 Active Cholecalciferol (VITAMIN D3) 25 MCG (1000 UT) Cap Take 1 capsule by mouth daily. 2 Active cyclobenzaprine 10 MG tablet Take 10 mg by mouth nightly at bedtime. 2 Active diclofenac EC 75 MG tablet TAKE 1 TABLET BY MOUTH TWICE DAILY FOR PAIN 2 Active ADVAIR DISKUS 250-50 MCG/ACT inhaler 2 Active gabapentin 800 MG tablet Take 800 mg by mouth 2 (two) times daily. 2 Active omeprazole 40 MG capsule Take 40 mg by mouth daily. 2 Active QUEtiapine 25 MG tablet Take 25 mg by mouth nightly at bedtime. at bedtime. 2 Active QUEtiapine 50 MG tablet Take 50 mg by mouth nightly at bedtime. at bedtime. 2 Active traZODone 150 MG tablet Take 150 mg by mouth nightly at bedtime. at bedtime 2 Active Encounters Date Type Department Care Team Description 12/27/2024 2:30 PM CORKING MACHINE OPERATOR - 12/27/2024 3:52 PM CORKING MACHINE OPERATOR Emergency [facility] [place] [address] Jeffery June PA-C Abdominal Pain Discharge Disposition: Home or Self Care (Routine Discharge) 12/27/2024 Travel from Last 3 Months Family History Medical History Relation Comments Hypertension Father Stroke Father Cancer Mother Relation Status Comments Father Mother Social History Tobacco Use Types Packs/Day Years Used Date Smoking Tobacco: Never Smokeless Tobacco: Never Alcohol Use Standard Drinks/Week Comments Yes 0 (1 standard drink = 0.6 oz pur e alcohol) occasional Comments No Sex and Gender Information Value Date Recorded Sex Assigned at Female 12/27/2024 2:08 PM CORKING MACHINE OPERATOR Legal Sex Female 5:10 PM CDT Gender Identity Not on file Sexual Orientation Not on file Last Filed Vital Signs Vital Sign Reading Time Taken Comments Blood Pressure 156/95 12/27/2024 3:45 PM CORKING MACHINE OPERATOR Pulse 67 12/27/2024 3:45 PM CORKING MACHINE OPERATOR Temperature 36.5 C (97.7 F) 12/27/2024 2:08 PM CORKING MACHINE OPERATOR Respiratory Rate 18 12/27/2024 3:45 PM CORKING MACHINE OPERATOR Oxygen Saturation 100% 12/27/2024 3:45 PM CORKING MACHINE OPERATOR Inhaled Oxygen Concentration - - Weight 122.5 kg (270 lb) 12/27/2024 2:08 PM CORKING MACHINE OPERATOR Height 175.3 cm (5' 9 ) 12/27/2024 2:08 PM CORKING MACHINE OPERATOR Body Mass Index 39.87 12/27/2024 2:08 PM CORKING MACHINE OPERATOR Plan of Treatment Health Maintenance Due Date Last Done Comments Cervical Cancer Screening Pa kannan Smear (Age 30 to 64) Every 3 Years 1969 Annual Physical 1972 Hepatitis C 1987 Hepatitis B Vaccines (1 of 3 - + 3-dose series) 1988 Cervical Cancer Screening Pa p with HPV Testing (Age 30 to 64) Every 5 Years 1999 Cervical Cancer Screening wi th HPV 1999 Zoster Vaccines (1 of 2) 2019 COVID-19 Vaccine ( - 2023-2 5 season) 2024 Influenza Adult (#1) 2024 Mammogram Screening 05/14/2025 05/14/2023, 01/14/2013 DTaP, Tdap and Td Vaccines ( 2 - Tdap) 09/08/2028 09/08/2018 Colorectal Cancer Screening Colonoscopy (10 Years) 11/24/2029 11/24/2019, 11/24/2019 Meningococcal B Vaccine Aged Out No l onger eligible based on patient's age to complete this topic Meningococcal Vaccine Aged Out No kisha isabelle eligible based on patient's age to complete this topic Pneumococcal Vaccine: Pediatrics (0 to 5 Years) and At-Risk Patients (6 to 64 Years) Aged Out No longer eligible b ased on patient's age to complete this topic RSV Immunizations Under 20 Months Aged Out No longer eligible b ased on patient's age to complete this topic Procedures Procedure Name Priority Date/Time Associated Diagnosis Comments CT ABD+PEL W CON STAT 12/27/2024 3:18 PM CORKING MACHINE OPERATOR HC URINALYSIS AUTO W/O MICRO STAT 12/27/2024 2:44 PM CORKING MACHINE OPERATOR LIPASE STAT 12/27/2024 2:38 PM CORKING MACHINE OPERATOR COMPREHENSIVE METABOLIC PANEL STAT 12/27/2024 2:38 PM CORKING MACHINE OPERATOR CBC W/DIFF AUTOMATED STAT 12/27/2024 2:38 PM CORKING MACHINE OPERATOR COLONOSCOPY Routine 11/24/2019 10:35 AM CORKING MACHINE OPERATOR from Last 3 Months or Most Recently Relevant to Health Maintenance Results * CT ABD+PEL W IV CON ONLY (12/27/2024 3:18 PM CORKING MACHINE OPERATOR) Anatomical Region Laterality Modality Abdomen Computed Tomogra phy 12/27/2024 3:18 PM CORKING MACHINE OPERATOR Impressions 12/27/2024 3:22 PM CORKING MACHINE OPERATOR IMPRESSION: 1. No definite acute CT findings within the abdomen or pelvis. 2. Cholelithiasis without evidence of cholecystitis. Referred By: Interpreted By: Florian Whalen MD, 12/27/2024 3:18 PM Narrative 12/27/2024 3:22 PM CORKING MACHINE OPERATOR [address] [address] EXAMINATION: CT ABD+PEL W CON, 12/27/2024 3:18 PM TECHNIQUE: Computed tomographic images of the abdomen and pelvis were obtained after the administration of 100 mL Isovue-300 injected through the left antecubital fossa IV, without evidence of adverse reaction. Additional coronal and sagittal reformatted images were generated. A dose lowering technique was used for this procedure, which may include, but is not limited to, dose reduction technique, automated exposure control, the use of iterative reconstruction, and ALARA (As Low As Reasonably Achievable) / Image Gently techniques. HISTORY: Mid abdominal pain that radiates to her back. Saw her pcp a week ago and diagnosed with UTI, given anitibiotics. COMPARISON: None available FINDINGS: Atelectasis in the lung bases. Heart size is at the upper limits of normal ABDOMEN: Liver is normal in size and contour. Cholelithiasis without evidence of cholecystitis. No bile duct dilation. The pancreas is negative. The spleen is normal in size. No adrenal mass. No perinephric abnormality. Malrotation of the left kidney. No nephrolithiasis. Caliber of the abdominal aorta is normal. Mild to moderate arteriosclerotic calcification of the abdominal aorta. No retroperitoneal adenopathy. PELVIS: The appendix is normal. There is no bowel dilation or wall thickening. Anastomotic sutures involving the descending/sigmoid colon junction region. Moderate amount of stool throughout the colon. Findings of an anterocolonic anastomosis gastric bypass . No free fluid within the abdomen or pelvis. Urinary bladder is decompressed. Hysterectomy. No pelvic mass or adenopathy. Pelvic phleboliths. Intervertebral disc height loss at L4-5 with endplate degenerative change at this level. Moderate lumbar spondylosis. No acute fracture nor destructive process of the visualized osseous structures. Procedure Note Florian Whalen MD - 12/27/[address] [address] EXAMINATION: CT ABD+PEL W CON, 12/27/2024 3:18 PM TECHNIQUE: Computed tomographic images of the abdomen and pelvis wereobtained after the administration of 100 mL Isovue-300 injected throughthe left antecubital fossa IV, without evidence of adverse reaction.Additional coronal and sagittal reformatted images were generated. A doselowering technique was used for this procedure, which may include, but isnot limited to, dose reduction technique, automated exposure control, theuse of iterative reconstruction, and ALARA (As Low As ReasonablyAchievable) / Image Gently techniques. HISTORY: Mid abdominal pain that radiates to her back. Saw her pcp a weekago and diagnosed with UTI, given anitibiotics. COMPARISON: None available FINDINGS: Atelectasis in the lung bases. Heart size is at the upperlimits of normal ABDOMEN: Liver is normal in size and contour. Cholelithiasis withoutevidence of cholecystitis. No bile duct dilation. The pancreas isnegative. The spleen is normal in size. No adrenal mass. No perinephricabnormality. Malrotation of the left kidney. No nephrolithiasis.Caliber of the abdominal aorta is normal. Mild to moderatearteriosclerotic calcification of the abdominal aorta. No retroperitonealadenopathy. PELVIS: The appendix is normal. There is no bowel dilation or wallthickening. Anastomotic sutures involving the descending/sigmoid colonjunction region. Moderate amount of stool throughout the colon. Findingsof an anterocolonic anastomosis gastric bypass . No free fluid within theabdomen or pelvis. Urinary bladder is decompressed. Hysterectomy. Nopelvic mass or adenopathy. Pelvic phleboliths. Intervertebral discheight loss at L4-5 with endplate degenerative change at this level.Moderate lumbar spondylosis. No acute fracture nor destructive process ofthe visualized osseous structures. IMPRESSION: 1. No definite acute CT findings within the abdomen or pelvis. 2. Cholelithiasis without evidence of cholecystitis. Referred By: Interpreted By: Florian Whalen MD, 12/27/2024 3:18 PM Laureen Garcia ELECTRONICS ASSEMBLER CT Final Resul t * (ABNORMAL) URINALYSIS (12/27/2024 2:44 PM CORKING MACHINE OPERATOR) SPECIMEN TYPE URINE CLEAN CATCH 12/27/2024 2:43 PM CORKING MACHINE OPERATOR [facility] COLOR (U) DARK YELLOW 12/27/2024 3:00 PM [facility] TRANSPARENCY CLEAR 12/27/2024 3:00 PM [facility] SPECIFIC GRAVITY (U) 1.029 1.001 - 1.030 12/27/2024 3:00 PM [facility] U PH 6.0 5.0 - 9.0 12/27/2024 3:00 PM [facility] LEUKOCYTES (U) NEGATIVE NEGATIVE 12/27/2024 3:00 PM [facility] NITRITES NEGATIVE NEGATIVE 12/27/2024 3:00 PM [facility] PROTEIN RANDOM (U) 20 <30 MG/DL 12/27/2024 3:00 PM [facility] GLUCOSE (U) NORMAL NORMAL MG/DL 12/27/2024 3:00 PM [facility] KETONES MG/DL (U) NEGATIVE NEGATIVE MG/DL 12/27/2024 3:00 PM [facility] UROBILINOGEN 3.0(A) NORMAL MG/DL 12/27/2024 3:00 PM [facility] BILIRUBIN (U) NEGATIVE NEGATIVE MG/DL 12/27/2024 3:00 PM [facility] BLOOD (U) NEGATIVE NEGATIVE 12/27/2024 3:00 PM [facility] URINE SPECIMEN OBTAINED BY CLEAN CATCH PROCEDURE / Unknown 12/27/2024 2:44 PM CORKING MACHINE OPERATOR Laureen Park Michaelchris ELECTRONICS ASSEMBLER URINE ORDERABLES Final Resu lt [facility] [address] [place] [address], [place] [phone] * (ABNORMAL) COMPREHENSIVE METABOLIC PANEL (12/27/2024 2:38 PM CORKING MACHINE OPERATOR) [facility] GLUCOSE 80 70 - 99 MG/DL 12/27/2024 3:14 PM CORKING MACHINE OPERATOR [facility] BUN 19(H) 7 - 18 MG/DL 12/27/2024 3:14 PM CORKING MACHINE OPERATOR [facility] CREATININE S/P/B 1.34(H) 0.55 - 1.02 MG/DL 12/27/2024 3:14 PM CORKING MACHINE OPERATOR [facility] SODIUM S/P/B 139 136 - 145 MMOL/L 12/27/2024 3:14 PM CORKING MACHINE OPERATOR [facility] POTASSIUM S/P/B 3.6 3.5 - 5.1 MMOL/L 12/27/2024 3:14 PM CORKING MACHINE OPERATOR [facility] CHLORIDE S/P/B 105 97 - 115 MMOL/L 12/27/2024 3:14 PM CORKING MACHINE OPERATOR [facility] CO2 31.4 21 - 32 MMOL/L 12/27/2024 3:14 PM CORKING MACHINE OPERATOR [facility] CALCIUM S/P/B 9.2 8.5 - 10.1 MG/DL 12/27/2024 3:14 PM CORKING MACHINE OPERATOR [facility] BILIRUBIN TOTAL S/P/B 0.5 0.2 - 1.2 MG/DL 12/27/2024 3:14 PM CORKING MACHINE OPERATOR [facility] Comment: THIS ASSAY IS NOT RECOMMENDED FOR PATIENTS UNDERGOING TREATMENT WITH ELTROMBOPAG DUE TO THE POTENTIAL FOR FALSELY ELEVATED RESULTS. TOTAL PROTEIN S/P/B 7.4 6.4 - 8.2 G/DL 12/27/2024 3:14 PM [facility] ALBUMIN S/P/B 3.3(L) 3.4 - 5.0 G/DL 12/27/2024 3:14 PM [facility] AST 27 15 - 37 U/L 12/27/2024 3:14 PM [facility] ALT 30 14 - 55 U/L 12/27/2024 3:14 PM [facility] ALKALINE PHOSPHATASE S/P/B 100 50 - 136 U/L 12/27/2024 3:14 PM [facility] ANION GAP 2.6 2 - 10 MMOL/L 12/27/2024 3:14 PM [facility] BUN CREATININE RATIO 14.2 6 - 26 12/27/2024 3:14 PM [facility] A/G RATIO 0.8(L) 1.0 - 2.0 RATIO 12/27/2024 3:14 PM [facility] GFR ESTIMATE 47(L) >90 ML/MIN/1.7 3 M2 12/27/2024 3:14 PM [facility] Comment: NOTE: eGFR is not calculated for patients <18 years of age or gender unknown. This is an estimated GFR calculation using the new CKD EPI creatinine equation without race and so does not require a correction factor for race. This estimated GFR should not be used for calculating drug doses. 12/27/2024 2:38 PM CORKING MACHINE OPERATOR Laureen Garcia ELECTRONICS ASSEMBLER LABORATORY Final Resul t [facility] [address] [place] [address], [place] [phone] * (ABNORMAL) CBC W/DIFF AUTOMATED (12/27/2024 2:38 PM CORKING MACHINE OPERATOR) [facility] WBC 6.08 4.5 - 11.0 x10'3/uL 12/27/2024 2:54 PM CORKING MACHINE OPERATOR [facility] RBC 4.46 4.20 - 5.40 x10'6/uL 12/27/2024 2:54 PM [facility] HGB 12.3 12.0 - 16.0 G/DL 12/27/2024 2:54 PM [facility] HCT 39.9 38.0 - 48.0 % 12/27/2024 2:54 PM [facility] MCV 89.5 81.0 - 99.0 FL 12/27/2024 2:54 PM [facility] MCH 27.6 27.0 - 31.0 PG 12/27/2024 2:54 PM [facility] MCHC 30.8(L) 32.0 - 36.0 G/DL 12/27/2024 2:54 PM [facility] RDW 12.6 11.5 - 14.5 % 12/27/2024 2:54 PM [facility] PLT 238 130 - 400 x10'3/uL 12/27/2024 2:54 PM [facility] MPV 10.2 9.3 - 12.2 FL 12/27/2024 2:54 PM [facility] DIFFERENTIAL TYPE AUTOMATED DIFFERENTIAL 12/27/2024 2:54 PM [facility] NEUTROPHILS % 50.3 % 12/27/2024 2:54 PM [facility] LYMPHOCYTES % 33.6 % 12/27/2024 2:54 PM [facility] MONOCYTES % 12.3 % 12/27/2024 2:54 PM CORKING MACHINE OPERATOR [facility] EOSINOPHILS 3.1 % 12/27/2024 2:54 PM CORKING MACHINE OPERATOR [facility] BASOPHILS 0.5 % 12/27/2024 2:54 PM CORKING MACHINE OPERATOR [facility] IMMATURE GRANS % 0.2 % 12/27/19 2:54 PM CORKING MACHINE OPERATOR [facility] ABS. NEUTROPHILS 3.06 1.80 - 7.70 x10'3/uL 12/27/2024 2:54 PM CORKING MACHINE OPERATOR [facility] ABS. LYMPHOCYTES 2.04 1.00 - 4.80 x10'3/uL 12/27/2024 2:54 PM CORKING MACHINE OPERATOR [facility] ABS. MONOCYTES 0.75 0.24 - 0.86 x10'3/uL 12/27/2024 2:54 PM CORKING MACHINE OPERATOR [facility] ABS. EOSINOPHILS 0.19 0.04 - 0.36 x10'3/uL 12/27/2024 2:54 PM CORKING MACHINE OPERATOR [facility] ABS. BASOPHILS 0.03 0.01 - 0.08 x10'3/uL 12/27/2024 2:54 PM CORKING MACHINE OPERATOR [facility] ABS. IMMATURE GRANULOCYTES 0.01 0.00 - 0.49 x10'3/uL 12/27/2024 2:54 PM CORKING MACHINE OPERATOR [facility] 12/27/2024 2:38 PM CORKING MACHINE OPERATOR us Laureen Garcia ELECTRONICS ASSEMBLER LABORATORY Final Resul t [facility] [address] [place] [address], [place] [phone] * LIPASE (12/27/2024 2:38 PM CORKING MACHINE OPERATOR) LIPASE 50 13 - 75 UNITS/L 12/27/2024 3:14 PM CORKING MACHINE OPERATOR [facility] 12/27/2024 2:38 PM CORKING MACHINE OPERATOR Laureen Garcia ELECTRONICS ASSEMBLER LABORATORY Final Resul t [facility] [address] [place] [address], from Last 3 Months Insurance MEDICAID MEDICARE Care Teams Materials And Processes Manager Relationship Specialty Start Date End Date Ronda Addison NP [address] [place] [address] PCP - General NURSE PRACTITIONER 12/27/24
== END 2025-02-02 14:41 | disposition home or self-care (01) ==
PROVIDERS: PCP Physician Assistant; Visit Provider Orthopaedic Surgery
DX: R94.31 Abnormal electrocardiogram [ECG] [EKG] (principal); R00.1 Bradycardia, unspecified; I10 Essential (primary) hypertension; R59.1 Generalized enlarged lymph nodes; R53.83 Other fatigue
CPT/HCPCS: 36415; 80048; 81003; 85025; 93005